=== PATIENT | female | born 1925 | race Caucasian/White ===

== ENCOUNTER → 2016-09-16 | Outpatient (CLI) | payer MEDICARE, OTHER ==
--- NOTE | 2016-09-16 14:28 | XR ---
EXAMINATION TYPE: XR chest 2V DATE OF EXAM: 09/16/2016 COMPARISON: 02/25/2015 INDICATION: Hemoptysis, short of breath TECHNIQUE: Frontal and lateral views of the chest are obtained. FINDINGS: The heart size is normal. The pulmonary vasculature is normal. Lingular infiltrate is present.. Hyperinflation is present. IMPRESSION: 1. Lingular infiltrate. Correlate for pneumonia.
== END | disposition home or self-care (01) ==
LOC: RADXRMAIN 12:28
PROVIDERS: ATTEND Internal Medicine
DX: R91.8 Other nonspecific abnormal finding of lung field (principal); R04.2 Hemoptysis
CPT/HCPCS: 71020

== ENCOUNTER → 2016-10-20 | Outpatient (CLI) | payer MEDICARE, OTHER ==
--- NOTE | 2016-10-20 10:16 | XR ---
EXAMINATION TYPE: XR chest 2V DATE OF EXAM: 10/20/2016 COMPARISON: Chest x-ray September 16, 2016. HISTORY: Cough per order. TECHNIQUE: Frontal and lateral views of the chest are obtained. FINDINGS: There is background of chronic emphysematous change. There is no focal air space opacity, pleural effusion, or pneumothorax seen. The cardiac silhouette size is within normal limits with ath erosclerotic thoracic aorta. The osseous structures are demineralized. There is underlying dextroco nvex scoliosis centered in the mid thoracic spine redemonstrated. There is prominent multilevel spurr ing in the spine again seen. IMPRESSION: Chronic emphysematous change without acute pulmonary process on current study.
== END | disposition home or self-care (01) ==
LOC: RADXRMAIN 09:38
PROVIDERS: ATTEND Internal Medicine
DX: J43.9 Emphysema, unspecified (principal)
CPT/HCPCS: 71020

== ENCOUNTER 2016-11-04 08:52 | Day surgery (SDC) | payer MEDICARE, OTHER ==
[2016-10-29 10:59] VITALS: BMI 18.6
[~2016-11-04 08:52] MED LIST: CLINDAMYCIN 900 MG in DEXTROSE 5% IN WATER 50 ML IVPB ONE; FAMOTIDINE 20 MG/2 ML VIAL IV ONE; LACTATED RINGERS 1,000 ML IV SCH
[2016-11-04 10:12] VITALS: TEMP 96.8
[2016-11-04] MEDS ORDERED: LIDOCAINE 1% 20 ML VIAL (10MG/ML) FOR IV START INTRADERMA ONE (10:12)
[2016-11-04] MEDS ORDERED: PROPOFOL 10 MG/ML 20 ML VIAL IV ONE (10:54)
[2016-11-04] MEDS ORDERED: fentaNYL (PF) 50 MCG/ML 2 ML AMP ONE (10:54)
[2016-11-04] MEDS ORDERED: LIDOCAINE 2%-EPI 1:100,000 20 ML VIAL SQ ONE (11:08)
[2016-11-04] MEDS ORDERED: SODIUM BICARB 8.4% 50 ML VIAL (1 MEQ/ML) MISCELLANE ONE (11:08)
[2016-11-04] MEDS ORDERED: LACTATED RINGERS 1,000 ML IV ONE (11:53)
--- NOTE | 2016-11-04 11:53 | P.OP ---
Date of Procedure: 11/04/16 Preoperative Diagnosis: Right upper lip skin lesion Postoperative Diagnosis: Same, basal cell carcinoma Procedure(s) Performed: Excision right upper lip skin lesion 2.6 cm with complex closure Implants: Anesthesia: MAC Surgeon: Mehran Tovar Estimated Blood Loss (ml): 2 Pathology: other (Right upper lip skin lesion) Condition: stable Disposition: PACU Indications for Procedure: Is an 89-year-old white female with a slowly enlarging right upper lip lesion. Clinically this appeared to be consistent with a basal cell carcinoma Operative Findings: Right upper lip lesion which was cutaneous but bordered the vermilion border. This was excised grossly entirely as well as by frozen section margins and was felt to be a basal cell carcinoma on initial frozen section. Description of Procedure: The patient was brought in the operative suite and placed in a supine position. Patient underwent induction of IV sedation by the director of aviation after appropriate monitors were placed. The patient was prepped and draped in usual aseptic fashion. 1% lidocaine with 1-100,000 epinephrine was infused subcutaneously fashion. This was left to work for 7 minutes vasoconstrictive effect. The lesion was then excised in sheild shape down to the muscular layer. Hemostasis was gained with electrocautery. The specimen was sent for frozen section and this had negative margins. The closure was then a complex closure requiring deep subcutaneous layer closure and for official subcutaneous layer closure with inverted interrupted 5-0 Vicryl suture and skin closed with running locking 5-0 Prolene suture. This closure was chosen in order to prevent need for full-thickness excision to decrease chance of infection. Bacitracin ointment was placed. There is excellent hemostasis. The patient was allowed to emerge from anesthesia and tolerated procedure well was transferred postoperative recovery area in satisfactory condition.
[2016-11-04 12:02] VITALS: RESP 18
[2016-11-04 12:34] VITALS: BP 133/68; PULSE 55
== END 2016-11-04 13:04 | disposition home or self-care (01) ==
LOC: OR 08:52
PROVIDERS: ATTEND Otolaryngology
DX: C44.01 Basal cell carcinoma of skin of lip (principal); L57.8 Other skin changes due to chronic exposure to nonionizing radiation; Z79.899 Other long term (current) drug therapy; Z88.6 Allergy status to analgesic agent; Z88.0 Allergy status to penicillin
CPT/HCPCS: 88305; 88331; 11643; 12052; J3010; J2704

== ENCOUNTER 2016-11-05 16:19 | Emergency (ER) | payer MEDICARE, OTHER ==
[2016-11-05 16:44] VITALS: BP 139/71; PULSE 87; RESP 18; TEMP 97.4
--- NOTE | 2016-11-05 17:10 | ED ---
General Adult HPI - General Chief complaint: Skin/Abscess/Foreign Body Stated complaint: Face Injury Time Seen by Provider: 11/05/16 17:03 Source: patient Mode of arrival: ambulatory Limitations: no limitations - History of Present Illness Initial comments: 89-year-old female patient presents to emergency department today for evaluation of her upper lip incision site. Patient had skin cancer removed by Dr. Tovar yesterday. Patient states that today she noticed some red streaking coming from the site on the right side of her face. Patient states that she has been taking the Keflex she was given an applying antibiotic ointment as directed. She denies any fever, chills, increased pain, dizziness, weakness, nausea, or vomiting. Denies any other physical concerns. - Related Data Home Medications Medication Instructions Recorded Confirmed Calcium Carbonate/Vitamin D3 1 tab PO DAILY 01/18/15 11/05/16 [Calcium 600 + Vit D Tablet] Diltiazem HCl [Diltiazem 24Hr ER] 180 mg PO QAM 01/18/15 11/05/16 Multivitamins, Thera [Multivitamin] 1 tab PO DAILY 01/18/15 11/05/16 Cephalexin [Keflex] 250 mg PO QID 11/05/16 11/05/16 Allergies Allergy/AdvReac Type Severity Reaction Status Date / Time Penicillins Allergy Severe Swelling Verified 11/05/16 16:53 aspirin Allergy Rash/Hives Verified 11/05/16 16:53 pneumococcal vaccine Allergy Swelling Verified 11/05/16 16:53 Review of Systems ROS Statement: Those systems with pertinent positive or pertinent negative responses have been documented in the HPI. ROS Other: All systems not noted in ROS Statement are negative. Past Medical History Past Medical History: Cancer, Hypertension, Pneumonia Additional Past Medical History / Comment(s): HAS BEEN COUGHING UP BLOOD, skin cancer History of Any Multi-Drug Resistant Organisms: None Reported Past Surgical History: Appendectomy Additional Past Surgical History / Comment(s): cataract removal, skin surgery to remove cancer Past Anesthesia/Blood Transfusion Reactions: No Reported Reaction Past Psychological History: No Psychological Hx Reported Smoking Status: Former smoker Past Alcohol Use History: None Reported Past Drug Use History: None Reported General Exam Limitations: no limitations General appearance: alert, in no apparent distress ENT exam: Present: normal exam, mucous membranes moist, other (Patient has a vertical incision to the upper lip, well approximated with sutures, there is surrounding ecchymosis, ecchymosis that is purple in color extending down the right side of her face and a linear pattern to her chin. No redness, warmth, purulent drainage noted.) Neck exam: Present: normal inspection. Absent: tenderness, meningismus, lymphadenopathy Respiratory exam: Present: normal lung sounds bilaterally. Absent: respiratory distress, wheezes, rales, rhonchi, stridor Cardiovascular Exam: Present: regular rate, normal rhythm, normal heart sounds. Absent: systolic murmur, diastolic murmur, rubs, gallop, clicks Neurological exam: Present: alert, oriented X3, CN II-XII intact Psychiatric exam: Present: normal affect, normal mood Skin exam: Present: warm, dry, intact, normal color. Absent: rash Course Vital Signs 11/05/16 16:40 Temperature 97.4 F L Pulse Rate 87 Respiratory 18 Rate Blood Pressure 139/71 O2 Sat by Pulse 97 Oximetry Medical Decision Making - Medical Decision Making 89-year-old female patient presented for evaluation of some red streaking down the right side of her face from her incision site. Physical exam did reveal ecchymosis around the incision site has now extended down her face. Did explain to patient that this is bruising and it seems to be spreading and that she may notice that getting bigger over the next couple of days. Did advise her to place cool compresses to the area. She was instructed to continue taking the Keflex and applying antibiotic ointment as directed by Dr. Tovar. She was directed to follow-up with Dr. Tovar for recheck in 1-2 days. Instructed to return here immediately for any new, worsening, or concerning symptoms. Patient verbalized understanding and agreed with this plan. Disposition Clinical Impression: Bruise of face Disposition: HOME SELF-CARE Condition: Good Instructions: Ecchymosis (ED) Additional Instructions: Apply cool compresses to bruised area. Continue taking antibiotics and apply antibiotic cream. Follow-up with primary care physician for recheck in 1-2 days. Return immediately for any new, worsening, or concerning symptoms. Referrals: Blair Murphy MD [Primary Care Provider] - 1-2 days Time of Disposition: 17:10
== END 2016-11-05 17:22 | disposition home or self-care (01) ==
LOC: EC 16:19
DX: L76.82 Other postprocedural complications of skin and subcutaneous tissue (principal); I10 Essential (primary) hypertension; Z88.0 Allergy status to penicillin; Z88.6 Allergy status to analgesic agent; Z88.7 Allergy status to serum and vaccine; Z87.891 Personal history of nicotine dependence; Z85.828 Personal history of other malignant neoplasm of skin; Z79.899 Other long term (current) drug therapy; Y83.8 Other surgical procedures as the cause of abnormal reaction of the patient, or of later complication, without mention of misadventure at the time of the procedure
CPT/HCPCS: 99283